=== PATIENT | male | born 1945 | race Caucasian/White ===

== ENCOUNTER 2023-04-11 12:44 | Outpatient (CLI) | payer OTHER, SELFPAY ==
--- NOTE | ~2023-04-11 | US_ITS ---
EXAMINATION: US renal BI DATE: 04/11/2023 15:50 INDICATION: R94.4 - Abnormal results of kidney function studies TECHNIQUE: Multiple grayscale and Doppler ultrasound images of the kidneys were obtained. COMPARISON: None. FINDINGS: The right kidney measures 9.5 x 5.1 x 5.1 cm. The left kidney measures 9.3 x 5.8 x 4.5 cm. The kidney s demonstrate normal parenchymal echogenicity. 12 mm right inferior pole simple cyst. There is no hyd ronephrosis. The bladder is well-distended, without wall thickening. Bilateral ureteral jets. IMPRESSION: Unremarkable renal sonogram findings. Reviewed, dictated and finalized at location K.
== END 2023-04-11 12:45 | disposition home or self-care (01) ==
PROVIDERS: PCP Family Medicine; Visit Provider Physician Assistant
DX: R94.4 Abnormal results of kidney function studies (principal); N18.9 Chronic kidney disease, unspecified
CPT/HCPCS: 76775

== ENCOUNTER 2024-07-02 14:54 | Outpatient (CLI) | payer OTHER, SELFPAY ==
--- NOTE | ~2024-07-02 | XR_ITS ---
EXAMINATION: XR knee RT 3V DATE: 07/02/2024 15:11 INDICATION: Right knee pain. TECHNIQUE: 3 views of right knee including weight-bearing views were obtained. COMPARISON: None. FINDINGS: Alignment is normal. No fracture. There is mild tricompartmental osteoarthritis. There is a small knee joint effusion. IMPRESSION: 1. Mild right knee osteoarthritis. 2. Small right knee joint effusion. Reviewed, dictated and finalized at location A. NORMAL INVESTIGATOR
== END 2024-07-02 14:55 | disposition home or self-care (01) ==
PROVIDERS: PCP Family Medicine; Visit Provider Physician Assistant
DX: M25.461 Effusion, right knee (principal); M17.11 Unilateral primary osteoarthritis, right knee
CPT/HCPCS: 73562

== ENCOUNTER 2024-12-15 17:31 | Emergency (ER) | payer OTHER, SELFPAY ==
--- NOTE | ~2024-12-15 | CT_ITS ---
EXAMINATION: CT thoracic lumbar wo con DATE: 12/15/2024 18:29 INDICATION: trauma . TECHNIQUE: Computed tomography (CT) of the thoracic and lumbar spine was performed without intravenou s contrast. Automated exposure control and iterative reconstruction technique were employed. The dose -length product was 1026.51 mGy-cm. COMPARISON: None FINDINGS: THORACIC SPINE: 12 rib-bearing thoracic-type vertebral bodies. Additional vertebral body at the thoracolumbar junctio n, with hypoplastic bilateral ribs versus unfused transverse processes. Given the presence of 5 nonri b-bearing lumbar-type vertebral bodies this level will be designated to 13 for purposes of this exami nation. Vertebral body alignment intact. Vertebral body heights preserved. Multilevel mild degenerati ve disc disease. No traumatic malalignment or fracture. Visualized lung parenchyma is clear. Atherosc lerotic aortic calcification. Moderate coronary artery calcifications LUMBAR SPINE: 5 nonrib-bearing lumbar-type vertebral bodies. Pedicles intact. Normal vertebral body alignment. Susan tebral body heights preserved. No acute fracture. Old nondisplaced left L3 inferior articular facet f racture. Multilevel degenerative disc disease, severe at L4-5. Multilevel facet arthropathy. No sever e central canal or neural foraminal narrowing. Atherosclerotic calcifications. Prostatomegaly with ca lcification. Mild bilateral perinephric stranding. IMPRESSION: No acute fracture or traumatic malalignment detected in the thoracic or lumbar spine. Transitional anatomy, as detailed above. Reviewed, dictated and finalized at location K.
--- NOTE | ~2024-12-15 | CT_ITS ---
EXAMINATION: CT cervical spine wo con DATE: 12/15/2024 18:29 INDICATION: fall TECHNIQUE: Computed tomography (CT) of the cervical spine was performed without intravenous contrast. Automated exposure control and iterative reconstruction technique were employed. The dose-length pro duct was 469.01 mGy-cm. COMPARISON: None. FINDINGS: Vertebral Body Alignment: Grade 1 retrolistheses at C3-4 and C5-6. Grade 1 anterolisthesis at C4-5. Craniocervical and atlantoaxial alignment: Moderate degenerative change. Alignment intact. Osseous structures/fracture: No evidence of a lytic or blastic process in the visualized spine. No e vidence of acute fracture. Cervical soft tissues: The paraspinal soft tissues planes are maintained. Degenerative changes: Degenerative changes, without severe neural foraminal or central canal narrowin g. IMPRESSION: No acute fracture or traumatic malalignment in the cervical spine. Multilevel grade 1 listheses in the cervical spine, presumably secondary to degenerative changes. Reviewed, dictated and finalized at location K. IMPRESSION: No acute fracture or traumatic malalignment in the cervical spine. Multilevel grade 1 listheses in the cervical spine, presumably secondary to deg enerative changes.
--- NOTE | ~2024-12-15 | XR_ITS ---
EXAMINATION: XR chest 2V Exam Date/Time: 12/15/2024 17:50 CDT HISTORY: SYNCOPE Comparison: 03/10/2018. RESULT: Lines, tubes, and devices: Cholecystectomy clips. Lungs and pleura: Streaky subsegmental opacities in the left medial lung base. Cardiomediastinal silhouette: Stable. Other: No acute osseous or upper abdominal finding. IMPRESSION: Subsegmental left medial basilar atelectasis/consolidation. Reviewed, dictated and finalized at location K.
--- NOTE | ~2024-12-15 | CT_ITS ---
EXAMINATION: CT brain wo con DATE: 12/15/2024 18:29 INDICATION: head injury/fall . TECHNIQUE: Computed tomography (CT) of the head was performed without intravenous contrast. The mA wa s adjusted according to patient size. Iterative reconstruction technique was employed. The dose-lengt h product was 605.33 mGy-cm. COMPARISON: None. FINDINGS: No acute intracranial hemorrhage or extra-axial fluid collection. No hydrocephalus, mass, or herniation. No acute ischemic infarct. Unremarkable dural venous sinus attenuation. No acute osseous abnormality. The aerated spaces are clear. Old left basal ganglia lacunar infarct. Mild bilateral basal ganglia calcification Mild and chronic w tony matter change. Atherosclerotic intracranial calcification. Bilateral lens replacements. IMPRESSION: No acute intracranial process. Reviewed, dictated and finalized at location K.
[2024-12-15 17:35] VITALS: BP 141/70; PULSE 88; RESP 20; TEMP 36.9; O2SAT 97
--- NOTE | 2024-12-15 17:37 | ECG_ITS ---
Test Date: 2024-12-15 17:39:30 Measurements Intervals [place] Rate: 85 P: 18 NM: 180 QRS: 18 QRSD: 81 T: 48 QT: 343 QTc: 409 Interpretive Statements SINUS RHYTHM No previous ECG available for comparison Electronically Signed On 12-16-2024 06:54:44 CDT by Vicky Weiss M.D.
--- NOTE | 2024-12-15 18:09 | ED_ITS ---
HPI - General Adult General Chief complaint: Syncope Stated complaint: syncope Time Seen by Provider: 12/15/24 17:34 History of Present Illness HPI narrative: Patient is a 79-year-old male who presents ER after having syncopal episode and pulling 4 ft off of a deck. He was outside for last are working on stripping the deck. He was having no chest pain or palpitations. He remember striking his head on a railing but does not remember hitting the ground. He is not on any blood thinning medications. No fevers or chills or sweats. Has some pain to low back where there is an abrasion over the thoracolumbar area. No lower extremity numbness or weakness. No extremity pain. Related Data Home Medications ?Medication ?Instructions ?Recorded ?Confirmed ?Last Taken ?Type aspirin 81 mg tablet,delayed 81 mg PO DAILY 06/16/21 10/29/24 Unknown History release Allergies Allergy/AdvReac Type Severity Reaction Status Date / Time No Known Allergies Allergy Verified 10/29/24 13:42 Review of Systems 2 Review of Systems: All systems reviewed & are unremarkable except as noted in HPI and below Constitutional: Constitutional: Reports no additional constitutional complaints ENT: Reports system reviewed and no additional complaints, except as documented Cardiovascular: Cardiovascular: Reports no additional cardiovascular complaints Respiratory: Respiratory: Reports no additional respiratory complaints Gastrointestinal: Gastrointestinal: Reports no additional gastrointestinal complaints [facility] Past Medical History Medical History Allergic rhinosinusitis Hypertension Mixed hyperlipidemia CONNIE (generalized anxiety disorder) Surgical History Surgical History History of laparoscopic cholecystectomy History of endoscopic sinus surgery History of nasal septoplasty Family History Family History Mother Family history of malignant neoplasm, Onset Age: 90 Patient's mother is Sibling Malignant neoplasm of prostate, Onset Age: 68 Father Family history of diabetes mellitus in first degree relative Family history of coronary artery disease Social History Social History Social History: Smoking status: Former smoker Tobacco type: cigarettes Second hand tobacco smoke exposure: No Smoking end date: 08/14/87 Alcohol intake: former Substance use: never Substance use type: does not use Do You Feel Safe in your Home?: Yes Lack of Transportation: No Lack of Food: Never True Current Housing: I Have Housing Concerned About Future Housing: No Difficulty Paying Gas/Electric Bills: No Difficulty Paying for Meds: No Currently Unemployed: YES Education: Don't Know Difficulty w/ Childcare or Family Care: No Living arrangements: with family Occupation/Education: retired Gender identity (if verbalized by the patient): Male Sexual Orientation (if Verbalized by the Patient): Straight or Heterosexual Exam 2 Narrative: GENERAL: Well-appearing, well-nourished, and in no acute distress. HEAD: Normocephalic, atraumatic. ENT: Mucous membranes moist. NECK: Supple. C-spine immobilized. No midline tenderness. CHEST: Clear to auscultation. No respiratory distress. HEART: Regular rate and rhythm. Normal peripheral pulses. ABDOMEN: Soft, nontender, nondistended. Back: Tender palpation over T11 through L2 where there is abrasion midline. No paraspinal tenderness. No step-offs. EXTREMITIES: Normal range of motion. No edema. SKIN: Warm, dry, no rash. NEURO: No focal deficits. Alert and oriented x3. PSYCH: Normal mood and affect. Course Course Emergency Course: Patient resting comfortably. Unremarkable workup thus far. Troponin pending. Orthostatics with blood pressure in the 120s thing/sitting/standing, heart rate 68/72/84. No dizziness. Apparently patient did tell he was dizzy at home when this had occurred. He has never having exertional chest pain. He was aware that he struck his head when falling. Had rapid return to consciousness according to who witnessed event. If troponin is negative discharge home. Vital Signs Vital signs: Vital Signs Temperature 98.4 F 12/15/24 17:35 Pulse Rate 88 12/15/24 17:35 Respiratory Rate 20 12/15/24 17:35 Blood Pressure 141/70 H 12/15/24 17:35 Pulse Oximetry 97 12/15/24 17:35 Temperature 98.4 F 12/15/24 17:35 Pulse Rate 88 12/15/24 17:35 Respiratory Rate 20 12/15/24 17:35 Blood Pressure 141/70 H 12/15/24 17:35 Pulse Oximetry 97 12/15/24 17:35 Medical Decision Making Vital Signs Vital Signs: Vital Signs Temperature 98.4 F 12/15/24 17:35 Pulse Rate 88 12/15/24 17:35 Respiratory Rate 20 12/15/24 17:35 Blood Pressure 141/70 H 12/15/24 17:35 Pulse Oximetry 97 12/15/24 17:35 Temperature 98.4 F 12/15/24 17:35 Pulse Rate 88 12/15/24 17:35 Respiratory Rate 20 12/15/24 17:35 Blood Pressure 141/70 H 12/15/24 17:35 Pulse Oximetry 97 12/15/24 17:35 Lab Data 12/15/24 19:22 12/15/24 19:22 Labs: Lab Results 12/15/24 12/15/24 Range/Units 19:21 19:22 WBC 10.0 (4.5-10.0) K/mm3 RBC 4.05 L (4.6-6.20) M/mm3 Hgb 13.1 L (14.0-18.0) g/dL Hct 39.1 L (42.0-52.0) % MCV 96.5 (80-100) fl MCH 32.3 (26-34) pg MCHC 33.5 (32-36) g/dl RDW 12.8 (11.5-14.5) % Plt Count 183 (150-375) k/mm3 MPV 9.7 (7.4-10.4) fl Immature Gran % (Auto) 0.3 (0-0.5) % Neut % (Auto) 76.5 H (45.5-73.1) % Lymph % (Auto) 11.5 L (18.3-44.2) % Calhoun % (Auto) 8.1 (2.6-8.5) % Eos % (Auto) 3.1 (0-4.4) % Baso % (Auto) 0.5 (0.2-1.2) % Lymph # (Auto) 1.15 (0.9-3.2) K/mm3 Calhoun # (Auto) 0.8 H (0.1-0.6) K/mm3 Eos # (Auto) 0.3 (0-0.3) K/mm3 Baso # (Auto) 0.1 (0.0-0.1) K/mm3 Abs Immat Gran (auto) 0.03 (0.00-0.031) K/mm3 Absolute Neuts (auto) 7.6 H (1.3-6.7) K/mm3 Absolute Nucleated RBC 0.000 (0.0-0.012) K/mm3 Nucleated RBC % 0.0 (0.0-0.2) % Sodium 135 L (137-145) mmol/L Potassium 4.3 (3.4-5.0) mmol/L Chloride 107 (98-107) mmol/L Carbon Dioxide 19 L (22-30) mmol/L Anion Gap 9 (4-12) mmol/L BUN 30 H (9-20) mg/dL Creatinine 1.68 H (0.7-1.3) mg/dL Estim Creat Clear Calc Not Reportable Estimated GFR 40 L (59 - ) Glucose 111 H (65-110) mg/dL Calcium 8.8 (8.4-10.2) mg/dL Total Bilirubin 0.5 (0.2-1.3) mg/dL AST 23 (17-59) U/L ALT 21 (6-50) U/L Alkaline Phosphatase 47 (38-126) U/L Troponin I < 0.012 (0.000-0.034) ng/mL Total Protein 7.0 (6.3-8.2) g/dL Albumin 4.1 (3.5-5.1) g/dL Imaging Data Radiologist's impression: ITS Impressions Chest X-Ray 12/15/24 18:02 IMPRESSION: Subsegmental left medial basilar atelectasis/consolidation. Head CT 12/15/24 18:31 IMPRESSION: No acute intracranial process. Cervical Spine CT 12/15/24 18:47 IMPRESSION: No acute fracture or traumatic malalignment in the cervical spine. Multilevel grade 1 listheses in the cervical spine, presumably secondary to degenerative changes. Thoracic/Lumbar Spine CT 12/15/24 19:15 IMPRESSION: No acute fracture or traumatic malalignment detected in the thoracic or lumbar spine. Transitional anatomy, as detailed above. ECG Data EKG #1: ECG completion date: 12/15/24 ECG completion time: 17:39 EKG Interpretation: normal rate (85), sinus rhythm, no ectopy, normal QRS, normal QT and NL axis Discharge Plan Discharge Clinical Impression: Syncope Patient Disposition: Home Condition: Stable Instructions: Syncope (ED) Additional Instructions: Return the ER if you have recurrent loss of consciousness, you develop chest pain with activity, you cannot keep down food/water/medication, or you have additional concerns. Patient Language: Martiniquais Prescriptions: No Action aspirin 81 mg tablet,delayed release (DR/EC) 81 mg PO DAILY albuterol sulfate 90 mcg/actuation HFA aerosol inhaler See Rx Instructions .ROUTE .COMPLEX Qty: 6.7 0RF Dose Instruction: INHALE 1 PUFF BY MOUTH EVERY 4 HOURS NEEDED FOR SHORTNESS OF BREATH OR WHEEZING Rx Instructions: INHALE 1 PUFF BY MOUTH EVERY 4 HOURS NEEDED FOR SHORTNESS OF BREATH OR WHEEZING azelastine 137 mcg (0.1 %) spray,non-aerosol See Rx Instructions .ROUTE .COMPLEX Qty: 30 2RF Dose Instruction: SPRAY 1 SPRAY IN EACH NOSTRIL EVERY 12 HOURS Rx Instructions: SPRAY 1 SPRAY IN EACH NOSTRIL EVERY 12 HOURS lisinopril 2.5 mg tablet See Rx Instructions .ROUTE .COMPLEX Qty: 90 1RF Dose Instruction: TAKE 1 TABLET BY MOUTH EVERY DAY Rx Instructions: TAKE 1 TABLET BY MOUTH EVERY DAY alprazolam 0.5 mg tablet 0.5 mg PO BID PRN (Reason: anxiety) Qty: 60 0RF rosuvastatin 5 mg tablet See Rx Instructions .ROUTE .COMPLEX Qty: 90 1RF Dose Instruction: TAKE 1 TABLET BY MOUTH EVERY DAY WITH EVENING MEAL Rx Instructions: TAKE 1 TABLET BY MOUTH EVERY DAY WITH EVENING MEAL sildenafil (pulm.hypertension) 20 mg tablet See Rx Instructions .ROUTE .COMPLEX Qty: 30 2RF Dose Instruction: TAKE 1 TABLET BY MOUTH NEEDED FOR ERECTILE DYSFUNCTION. ADMINISTER DOSES ATLEAST 4-6 HOURS APART. Rx Instructions: TAKE 1 TABLET BY MOUTH NEEDED FOR ERECTILE DYSFUNCTION. ADMINISTER DOSES ATLEAST 4-6 HOURS APART. Follow-up/Referrals: Abdirahman Diallo MD [Primary Care Provider] - 1 Week
[2024-12-15 19:26] LABS: Basophils Absolute Auto 0.1 K/mm3 (0.0-0.1); Basophils Percent Auto 0.5 % (0.2-1.2); Eosinophils Absolute Auto 0.3 K/mm3 (0-0.3); Eosinophils Percent Auto 3.1 % (0-4.4); Hematocrit 39.1 % (42.0-52.0); Hemoglobin 13.1 g/dL (14.0-18.0); Immature Granulocyte Absolute 0.03 K/mm3 (0.00-0.031); Immature Granulocyte Percent A 0.3 % (0-0.5); Lymphocytes Absolute Auto 1.15 K/mm3 (0.9-3.2); Lymphocytes Percent Auto 11.5 % (18.3-44.2); Mean Corpuscular HGB Conc 33.5 g/dl (32-36); Mean Corpuscular Hemoglobin 32.3 pg (26-34); Mean Corpuscular Volume 96.5 fl (80-100); Mean Platelet Volume 9.7 fl (7.4-10.4); Monocytes Absolute Auto 0.8 K/mm3 (0.1-0.6); Monocytes Percent Auto 8.1 % (2.6-8.5); Neutrophils Absolute Auto 7.6 K/mm3 (1.3-6.7); Neutrophils Percent Auto 76.5 % (45.5-73.1); Platelet Count Result 183 k/mm3 (150-375); Red Blood Count 4.05 M/mm3 (4.6-6.20); Red Cell Distribution Width 12.8 % (11.5-14.5)
[2024-12-15 19:37] LABS: Alanine Aminotransferase 21 U/L (6-50); Albumin Level 4.1 g/dL (3.5-5.1); Alkaline Phosphatase 47 U/L (38-126); Anion Gap 9 mmol/L (4-12); Aspartate Amino Transferase 23 U/L (17-59); Bilirubin,Total 0.5 mg/dL (0.2-1.3); Blood Urea Nitrogen 30 mg/dL (9-20); Calcium 8.8 mg/dL (8.4-10.2); Carbon Dioxide 19 mmol/L (22-30); Chloride 107 mmol/L (98-107); Estimated Glomerular Filt Rate 40; Glucose 111 mg/dL (65-110); Potassium 4.3 mmol/L (3.4-5.0); Sodium 135 mmol/L (137-145)
[2024-12-15 20:03] LABS: Troponin I < 0.012 ng/mL (0.000-0.034)
== END 2024-12-15 19:57 | disposition home or self-care (01) ==
PROVIDERS: Emergency Provider Emergency Medicine; PCP Family Medicine
DX: R55 Syncope and collapse (principal); W17.89XA Other fall from one level to another, initial encounter; I10 Essential (primary) hypertension; E78.2 Mixed hyperlipidemia; K21.9 Gastro-esophageal reflux disease without esophagitis; Z87.891 Personal history of nicotine dependence
CPT/HCPCS: 36415; 70450; 71046; 72125; 72128; 72131; 80053; 84484; 85025; 93005; 99284

== ENCOUNTER 2025-03-27 14:01 | Outpatient (CLI) | payer OTHER, SELFPAY ==
--- NOTE | ~2025-03-27 | XR_ITS ---
EXAM: XR knee RT min 4V DATE: 03/27/2025 14:19 HISTORY: M25.561 - Pain in right knee . COMPARISON: 07/02/2024. FINDINGS: Decreased mineralization. No fracture or dislocation. No lytic or blastic lesion. Joint sp aces are severe medial joint space narrowing. Loss of valgus alignment. Mild tricompartmental osteoph ytosis. Moderate knee joint fluid collection. Quadriceps enthesopathy. No erosion or periosteal reynaga e. Soft tissues within normal limits. IMPRESSION: Osteopenia. Tricompartmental right knee osteoarthritis, severe in the medial compartment. Moderate knee joint effusion. Reviewed, dictated and finalized at location K. IMPRESSION: Osteopenia. Tricompartmental right knee osteoarthritis, severe in t he medial compartment. Moderate knee joint effusion.
== END 2025-03-27 14:02 | disposition home or self-care (01) ==
PROVIDERS: PCP Family Medicine
DX: M85.861 Other specified disorders of bone density and structure, right lower leg (principal); M17.11 Unilateral primary osteoarthritis, right knee; M25.461 Effusion, right knee
CPT/HCPCS: 73564

== ENCOUNTER 2025-07-01 10:03 | Outpatient (CLI) | payer OTHER, SELFPAY ==
--- NOTE | 2025-07-01 12:00 | NEURO_ITS ---
Impression: # Complains of pain, numbness and nocturnal paresthesia. ? # Right moderate to severe Carpal Tunnel Syndrome. ? # No ulnar neuropathy. ? # Needle/EMG exam mildly abnormal. Nerve Conduction Studies ?Stim Site NR Peak (ms) P-T Amp (?V) Site1 Site2 Delta-P (ms) Dist (cm) Emerson (m/s) Left Median Anti Sensory (2-3nd Digit) Wrist ? 3.2 14.8 Wrist 2-3nd Digit 3.2 14.0 44 Wrist ? 3.3 33.5 Wrist 2-3nd Digit 3.2 14.0 44 Right Median Anti Sensory (2-3nd Digit) Wrist ? 6.7 12.5 Wrist 2-3nd Digit 6.7 14.0 21 Wrist ? 7.4 8.3 Wrist 2-3nd Digit 6.7 14.0 21 Left Radial Anti Sensory (Base 1st Digit) Wrist ? 1.8 27.4 Wrist Base 1st Digit 1.8 0.0 Right Radial Anti Sensory (Base 1st Digit) Wrist ? 2.5 12.1 Wrist Base 1st Digit 2.5 0.0 Left Ulnar Anti Sensory (5th Digit) Wrist ? 2.9 51.9 Wrist 5th Digit 2.9 14.0 48 Right Ulnar Anti Sensory (5th Digit) Wrist ? 2.5 33.8 Wrist 5th Digit 2.5 14.0 56 ?Stim Site NR Onset (ms) O-P Amp (mV) Site1 Site2 Delta-0 (ms) Dist (cm) Emerson (m/s) Left Median Motor (Abd Poll Brev) Wrist ? 3.6 3.7 Elbow Wrist 5.9 32.0 54 Elbow ? 9.5 1.4 Right Median Motor (Abd Poll Brev) Wrist ? 6.0 6.6 Elbow Wrist 6.1 32.0 52 Elbow ? 12.1 6.3 Left Ulnar Motor (Abd Dig Minimi) Wrist ? 3.0 9.3 A Elbow Wrist 5.6 32.0 57 A Elbow ? 8.6 7.8 B Elbow Wrist 4.3 24.0 56 B Elbow ? 7.3 7.4 Right Ulnar Motor (Abd Dig Minimi) Wrist ? 2.7 8.2 A Elbow Wrist 5.9 33.0 56 A Elbow ? 8.6 7.7 B Elbow Wrist 4.0 23.0 58 B Elbow ? 6.7 8.3 F Wave Studies ?NR F-Lat (ms) L-R F-Lat (ms) Left Median (Mrkrs) (Abd Poll Brev) ? 32.75 5.32 Right Median (Mrkrs) (Abd Poll Brev) ? 38.07 5.32 Left Ulnar (Mrkrs) (Abd Dig Min) ? 33.07 0.10 Right Ulnar (Mrkrs) (Abd Dig Min) ? 33.17 0.10 Electromyography ?Side Muscle Nerve Root Ins Act Fibs Amp Dur Recrt Comment Right 1stDorInt Ulnar C8-T1 Nml Nml Nml Nml Nml Right Ext Indicis Radial (Post Int) C7-8 Nml Nml Nml Nml Nml Right Ext Digitorum Radial (Post Int) C7-8 Nml Nml Nml Nml Nml Right BrachioRad Radial C5-6 Nml Nml Nml Nml Nml Right PronatorTeres Median C6-7 Nml Nml Nml Nml Nml Right Abd Poll Brev Median C8-T1 Nml Nml Decr >12ms +1 Right ABD Dig Min Ulnar C8-T1 Nml Nml Nml Nml Nml Right FlexPolLong Median (Ant Int) C7-8 Nml Nml Nml Nml Nml Right Abd Poll Long Radial (Post Int) C7-8 Nml Nml Nml Nml Nml Left 1stDorInt Ulnar C8-T1 Nml Nml Nml Nml Nml Left Ext Indicis Radial (Post Int) C7-8 Nml Nml Nml Nml Nml Left Ext Digitorum Radial (Post Int) C7-8 Nml Nml Nml Nml Nml Left BrachioRad Radial C5-6 Nml Nml Nml Nml Nml Left PronatorTeres Median C6-7 Nml Nml Nml Nml Nml Left Abd Poll Brev Median C8-T1 Nml Nml Nml Nml Nml Left ABD Dig Min Ulnar C8-T1 Nml Nml Nml Nml Nml Left FlexPolLong Median (Ant Int) C7-8 Nml Nml Nml Nml Nml Left Abd Poll Long Radial (Post Int) C7-8 Nml Nml Nml Nml Nml
== END 2025-07-01 10:04 | disposition home or self-care (01) ==
PROVIDERS: PCP Family Medicine; Visit Provider Family Medicine
DX: R20.0 Anesthesia of skin (principal); R20.2 Paresthesia of skin; G56.01 Carpal tunnel syndrome, right upper limb
CPT/HCPCS: 95886; 95911